=== PATIENT | female | born 1985 | race Caucasian/White ===

== ENCOUNTER 2016-08-03 10:09 | Inpatient (IN) | payer MEDICAID, OTHER ==
[~2016-08-03] VITALS: Ht 157.5 cm; Wt 81.4 kg
[~2016-08-03 10:09] MED LIST: CALC-649 PO; FERR27TA PO; FOLI0.4T2 PO; PREN1TAB49 PO
[2016-08-03] MEDS ORDERED: FOLI-49 PO (10:24)
[2016-08-03 10:25] VITALS: Ht 157.5 cm; Wt 81.4 kg
[2016-08-03 10:26] VITALS: BP 115/57; PULSE 80; RESP 18
--- NOTE | 2016-08-03 10:35 | TRIAGE ---
OB Triage Datetime Report Generated by CPN: 08/03/2016 10:35 Datetime: 08/03/2016 10:29 Vaginal Exam Dilatation (cms): 6.0 Effacement (%): 80 Station: -2 Exam By: krista Vaginal Bleeding: None Cervix, Consistency: Soft Cervix, Position: Midposition Datetime: 08/03/2016 10:21 Assessment Type: Triage EGA: 39.0 Maternal Assessment Level of Consciousness: Fully Conscious DTR's/Clonus: DTRs 2+; No Clonus Headache: Denies Blurred Vision: No Respiratory Effort: Unlabored; Regular Rhythm; Equal Expansion Breath Sounds, Left: Clear and Equal Breath Sounds, Right: Clear and Equal Nausea/Vomiting: Denies RUQ Epigastric Pain: Denies Lower Extremities Edema: None Degree: None Upper Extremities Edema: None Degree: None Facial Edema: None Fall Risk Assessment History of Falling: (0) No Secondary Diagnosis: (0) No Ambulatory Aid: (0) Bedrest/Nurse Assist IV Therapy: (0) No Gait: (0) Normal/Bedrest/Immobile Mental Status: (0) Oriented to Own Ability Fall Score: 0 Fall Risk Score Definition: No Risk: No action required Datetime: 08/03/2016 10:20 Time of Arrival: 08/03/2016 10:05 Arrived By: Ambulatory Arrived From: Home Chief Complaint: c/o UC'S SINCE 699 Movement: Present Contractions: Irregular Time Contractions Began: 08/03/2016 07:00 Rupture of Membranes: Ruptured Vaginal Bleeding: None Vaginal Discharge: Denies Recent Sexual Intercouse: Denies Abdominal Trauma: Not Applicable Patient Complaints: Contractions; Cramping; Back Pain Time Provider Notified: 08/03/2016 10:32 Provider Notified: ESHAGHIAN Initial Plan: SVE Datetime: 08/03/2016 10:16 Labor Evaluation Monitor Mode: External Heart Rate Monitor Mode: External US
[2016-08-03] MEDS ORDERED: LACTATED RINGER'S 1,000 ML IV SCH (10:58)
[2016-08-03] MEDS ORDERED: BUTORPHANOL 2 MG INJ IV PRN (11:00)
[2016-08-03] MEDS ORDERED: METHYLERGONOVINE 0.2 MG INJ IM PRN ×2 (11:00→14:00)
[2016-08-03] MEDS ORDERED: AMPICILLIN 2 GM/NS (PMX) 100 ML IV ONE (11:00)
[2016-08-03] MEDS ORDERED: MISOPROSTOL 200 MCG TAB PR PRN ×2 (11:00→14:00)
[2016-08-03] MEDS ORDERED: OXYTOCIN 30 UNITS/LR 500 ML IV PRN (11:00)
[2016-08-03] MEDS ORDERED: IBUPROFEN 600 MG TAB PO PRN (11:00)
[2016-08-03] MEDS ORDERED: OXYTOCIN 30 UNITS/LR 500 ML IV SCH ×2 (11:00)
[2016-08-03] MEDS ORDERED: LIDOCAINE 1% (MPF) 30 ML INJ INJ PRN (11:00)
[2016-08-03] MEDS ORDERED: CARBOPROST 250 MCG INJ IM PRN ×2 (11:00→14:00)
[2016-08-03] MEDS ORDERED: LACTATED RINGER'S 1,000 ML IV PRN (11:00)
[2016-08-03 11:17] LABS: ADD SCAN DIFF NO
[2016-08-03 11:22] LABS: BASOPHILS % 0.2 % (0.0-2.0); EOSINOPHILS % 0.2 % (0.0-7.0); HEMATOCRIT 39.7 % (37.0-47.0); LYMPHOCYTES # 1.4 10^3/ul (0.8-2.9); LYMPHOCYTES % 15.4 % (15.0-51.0); MEAN CORPUSCULAR HEMOGLOBIN 32.7 pg (29.0-33.0); MEAN CORPUSCULAR HGB CONC 35.3 g/dl (32.0-37.0); MEAN CORPUSCULAR VOLUME 92.8 fl (82.0-101.0); MEAN PLATELET VOLUME 11.5 fl (7.4-10.4); MONOCYTE # 0.7 10^3/ul (0.3-0.9); MONOCYTES % 7.3 % (0.0-11.0); NEUTROPHILS % 76.2 % (39.0-77.0); PLATELET COUNT 133 10^3/UL (140-415); RED BLOOD COUNT 4.28 10^6/ul (4.20-5.40); RED CELL DISTRIBUTION WIDTH 12.9 % (11.5-14.5); WHITE BLOOD COUNT 9.2 10^3/ul (4.8-10.8)
[2016-08-03 11:52] LABS: INR 0.96; PROTIME 12.8 Sec (12.2-14.2)
[2016-08-03 11:56] LABS: BARBITURATES NEGATIVE (NEGATIVE); BENZODIAZEPINES NEGATIVE (NEGATIVE); CANNABINOIDS NEGATIVE (NEGATIVE); COCAINE NEGATIVE (NEGATIVE)
[2016-08-03 11:57] LABS: OPIATES NEGATIVE (NEGATIVE)
[2016-08-03 11:59] LABS: PARTIAL THROMBOPLASTIN TIME 24.8 Sec (25.0-35.0)
--- NOTE | 2016-08-03 13:14 | PREOPHP ---
DATE OF ADMISSION: 08/03/2016 HISTORY OF PRESENT ILLNESS: Ms. Latoya Johnson is a 30-year-old 2, para 1, EDC 2016, intrauterine at 39 weeks gestational age, presented to triage in labor. She reports of pancho since early this morning. She denies any vaginal bleeding or discharge. Her prenat fl care took place at [facility]. MEDICAL HISTORY: None. MEDICATIONS: vitamins. PAST SURGICAL HISTORY: None. OBSTETRICAL HISTORY: x1 vaginal delivery. GYNECOLOGIC HISTORY: 13, regular 3 to 4 days. Denies any sexually transmitted diseases. Sexually active with 1 partner. SOCIAL HISTORY: Denies any smoking, drugs or alcohol. FAMILY HISTORY: None. REVIEW OF SYSTEMS: All within normal except history of present illness. PHYSICAL EXAMINATION: HEENT: Within normal. LUNGS: CTA bilateral. CARDIOVASCULAR: S1, S2, regular rhythm. ABDOMEN: Gravid, nontender. Negative CVA bilateral. EXTREMITIES: Negative edema. No calf tenderness. PELVIC: Vaginal exam 900 -1. Artificial rupture of membrane with positive thick meconium. h eart tracing category 1, toco regular contractions. ASSESSMENT: A 30-year-old 2, para 1, intrauterine at term in labor, positive meco nium. PLAN: Expected vaginal delivery. Dictated By: ROMERO BAZZI/ERLIN Conf#: [id number] DID#: [id number]
[2016-08-03] MEDS ORDERED: MINERAL OIL LIGHT 10 ML VIAL TOP ONE (13:30)
[2016-08-03] MEDS: LACTATED RINGER'S 1,000 ML IV* SCH (13:46)
--- NOTE | 2016-08-03 13:47 | LDN ---
Date/Time of Note Date/Time of Note DATE: 08/03/16 TIME: 13:46 Delivery Summary Weeks of Gestation 39 Placenta Delivered: Spontaneously Meconium: Thick Episiotomy: No Estimated blood loss: 250 Sponge & Needle done & correct: Yes All needle counts correct: Yes Any foreign bodies felt in the: No Problems: Delivery Information Sex Sex: female Apgars 1 Minute: 8 5 Minute: 9 Suctioning Nose & mouth suctioned at rsihi: No Delee suction performed: No Umbilical Cord Umbilical cord with: 3 Vessels Cord presentations: nuchal cord Nuchal cord present X: 1 Cord Blood was obtained: Yes ROMERO JAIN MD Aug 03, 2016 13:47
[2016-08-03] MEDS ORDERED: SENNA/DOCUSATE NA (8.6MG/50MG) TAB PO PRN (14:00)
[2016-08-03] MEDS ORDERED: ONDANSETRON 4 MG INJ IV PRN (14:00)
[2016-08-03] MEDS ORDERED: DIPHENHYDRAMINE 25 MG CAP PO PRN (14:00)
[2016-08-03] MEDS ORDERED: DIBUCAINE 1% 30 GM OINT PR PRN (14:00)
[2016-08-03] MEDS ORDERED: ONDANSETRON 4 MG TAB PO PRN (14:00)
[2016-08-03] MEDS ORDERED: BENZOCAINE 20% 56 ML SPRAY TOP PRN (14:00)
[2016-08-03] MEDS ORDERED: LANOLIN 7 GM TUBE TOP PRN (14:00)
[2016-08-03] MEDS ORDERED: OXYCODONE/ASPIRIN (4.88/325) TAB PO PRN ×2 (14:00)
[2016-08-03] MEDS: OXYTOCIN 30 UNITS/LR 500 ML IV PRN ×2 (14:47→18:59)
[2016-08-03] MEDS ORDERED: AMPICILLIN 1 GM/NS (PMX) 50 ML IV SCH (15:00)
[2016-08-03 15:50] VITALS: BP 110/59; PULSE 66; RESP 17
[2016-08-03] MEDS: WITCH HAZEL/GLYCERIN PAD PR PRN (17:33)
[2016-08-03] MEDS: IBUPROFEN 600 MG TAB PO SCH (17:34)
[2016-08-03 20:00] VITALS: BP 110/50; PULSE 69; RESP 18
[2016-08-03] MEDS: MAGNESIUM HYDROXIDE 30ML CUP PO SCH (20:43)
[2016-08-03] MEDS: SENNA/DOCUSATE NA (8.6MG/50MG) TAB PO SCH (20:43)
[2016-08-04] MEDS: IBUPROFEN 600 MG TAB PO SCH ×5 (00:04→23:56)
[2016-08-04 04:00] VITALS: BP 103/56; PULSE 70; RESP 18
[2016-08-04 07:36] LABS: ADD SCAN DIFF NO
[2016-08-04 07:37] LABS: BASOPHILS % 0.2 % (0.0-2.0); EOSINOPHILS % 0.3 % (0.0-7.0); HEMATOCRIT 37.6 % (37.0-47.0); HEMOGLOBIN 12.7 g/dl (12.0-16.0); LYMPHOCYTES # 2.2 10^3/ul (0.8-2.9); LYMPHOCYTES % 19.2 % (15.0-51.0); MEAN CORPUSCULAR HGB CONC 33.8 g/dl (32.0-37.0); MEAN CORPUSCULAR VOLUME 94.7 fl (82.0-101.0); MEAN PLATELET VOLUME 11.1 fl (7.4-10.4); MONOCYTE # 0.7 10^3/ul (0.3-0.9); MONOCYTES % 5.7 % (0.0-11.0); NEUTROPHIL # 8.6 10^3/ul (1.6-7.5); PLATELET COUNT 115 10^3/UL (140-415); RED BLOOD COUNT 3.97 10^6/ul (4.20-5.40); RED CELL DISTRIBUTION WIDTH 13.1 % (11.5-14.5); WHITE BLOOD COUNT 11.5 10^3/ul (4.8-10.8)
[2016-08-04 07:50] VITALS: BP 109/50; PULSE 67; RESP 16
[2016-08-04] MEDS: SENNA/DOCUSATE NA (8.6MG/50MG) TAB PO SCH ×2 (08:15→21:52)
[2016-08-04] MEDS: MAGNESIUM HYDROXIDE 30ML CUP PO SCH ×2 (09:00→21:51)
--- NOTE | 2016-08-04 12:52 | PD.PPDC ---
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
--- NOTE | 2016-08-04 12:55 | PD.PPDC ---
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
[2016-08-04] MEDS: LACTATED RINGER'S 1,000 ML IV* SCH ×3 (13:20→21:46)
--- NOTE | 2016-08-04 13:46 | DS ---
DATE OF ADMISSION: 08/03/2016 DATE OF DISCHARGE: 08/04/2016 PRIMARY DIAGNOSIS: A 30-year-old 2, para 1, intrauterine at term in labor. PROCEDURE: Normal spontaneous vaginal delivery. CONDITION ON DISCHARGE: Stable. ACTIVITY: None per vagina, no heavy lifting x6 weeks. DIET: Regular. MEDICATIONS ON DISCHARGE: Motrin. DISCHARGE SUMMARY: Ms. Latoya Johnson is a 30-year-old 2, para 2, status post normal spontaneous vaginal delivery on 08/03/2016. She had a viable female, 8 and 9 respectively at 1 and 5 minutes. She had an uneventful day 1. She was discharged on day 2. Rene amador is ambulating, tolerating diet, positive flatulence, positive bowel movement. She will follow up in the office in 3 weeks for /postop care. Dictated By: ROMERO BAZZI/ERLIN Conf#: [id number] DID#: [id number]
[2016-08-04 16:00] VITALS: BP 90/51; PULSE 74; RESP 16
[2016-08-04 20:30] VITALS: BP 102/68; PULSE 73; RESP 18
[2016-08-04] MEDS: WITCH HAZEL/GLYCERIN PAD PR PRN (23:56)
[2016-08-05] MEDS: LACTATED RINGER'S 1,000 ML IV* SCH (00:51)
[2016-08-05 04:00] VITALS: BP 99/52; PULSE 67; RESP 17
[2016-08-05] MEDS: IBUPROFEN 600 MG TAB PO SCH ×2 (06:05→12:30)
[2016-08-05 08:15] VITALS: BP 101/57; PULSE 62; RESP 16
[2016-08-05] MEDS: MAGNESIUM HYDROXIDE 30ML CUP PO SCH (09:00)
[2016-08-05] MEDS: SENNA/DOCUSATE NA (8.6MG/50MG) TAB PO SCH (09:00)
== END 2016-08-05 18:40 | disposition home or self-care (01) | DRG 775 ==
LOC: OBT 10:09 → L-D 10:10 → OBT 10:34 → L-D 10:36 → PP1 15:46
PROVIDERS: ADMIT Obstetrics & Gynecology; ATTEND Obstetrics & Gynecology
PROC: 10E0XZZ Delivery of Products of Conception, External Approach (ICD-10-PCS; principal; 2016-08-03)
DX: O69.81X0 Labor and delivery complicated by cord around neck, without compression, not applicable or unspecified (principal); Z37.0 Single live birth; Z3A.39 39 weeks gestation of pregnancy
CPT/HCPCS: 80307; 85025; 85610; 85730; 86592; 86703; 86900; 86901; 87340; 99464; G0463; J0290; J0595; J2210; J2590; J7120